=== PATIENT | male | born 1940 | race Caucasian/White ===

== ENCOUNTER → 2020-07-14 | Outpatient (CLI) | payer MEDICARE ==
[~2020-07-14] MED LIST: ACYCLOVIR400 MG PO; ALBUTEROL2.5 MG/3 M INH; ALDACTONE25 MG PO; ASPIRIN EC81 MG PO; ATIVAN1 MG PO; AUGMENTIN 875-1 EACH PO; AVODART0.5 MG PO; CEFUROXIME500 MG PO; CHEST CONGESTI400 MG PO; CLARITIN10 MG PO; CLEOCIN HCL300 MG PO; CO Q-10100 MG PO; COENZYME Q10100 M1 PO; DARZALEX FASPRO15 ML SC; DEPAKOTE125 MG PO; DEXAMETHASONE 44 MG PO; DULERA 200 MCG8.8 GM INH; ELIQUIS 2.5 MG2.5 MG PO; ELIQUIS5 MG PO; FERROUS SULFAT325 MG PO; FLOMAX0.4 MG PO; FLONASE 0.05% N16 GM; GAS-X125 MG PO; GLIMEPIRIDE4 MG PO; HYDROCODON-ACE1 EAC4 PO; ISOSORBIDE MONO30 MG PO; KEFLEX500 MG PO; KENALOG 0.5% CR15 GM TOP; LANTUS SOL100 UNIT/1 SQ; LANTUS100 UNIT/1 SQ; LASIX TAB 20 MG20 MG PO; LUMIFY2.5 ML OP; MEGACE TAB 40 M40 MG PO; METOPROLOL SUCC25 MG PO; MILK OF MAGNESI30 ML PO; MIRALAX17 GM PO; MYLANTA MAXIMU355 ML PO; NITROSTAT0.4 MG SL; NOVOLOG FL100 UNIT/1 INJ; OMEPRAZOLE20 M2 PO; OMNICEF 300 MG300 MG PO; POMALYST2 MG PO; PROAIR HFA8.5 GM INH; PROBIOTIC1 EAC1 PO; RANEXA500 MG PO; REMERON15 MG PO; RESTORIL30 MG PO; ROCALTROL CA0.25 MCG PO; SINGULAIR10 MG PO; TESSALON PERLE100 MG PO; TOPROL XL 50 MG50 MG PO; TYLENOL 500 MG500 MG PO; TYLENOL WITH C1 EACH PO; VEGETABLE LAXA8.6 MG PO; VITAMIN B-121000 MCG PO; VITAMIN B-6100 MG PO; VITAMIN D31000 UNI1 PO; VITAMIN D3250 MC2 PO; ZOCOR20 MG PO; ZOFRAN 8 MG TAB8 MG PO; [UNRECOGNIZED DRUG - OTHER] IV
[2020-07-15 09:13] LABS: HBSAG SCREEN Negative (Negative); HEP A AB, IGM Negative (Negative); HEP B CORE AB, IGM Negative (Negative); HEP C VIRUS AB <0.1 (0.0-0.9)
== END ==
LOC: LAB 11:22
PROVIDERS: Internal Medicine Hematology & Oncology
DX: Z01.89 Encounter for other specified special examinations (principal); C90.02 Multiple myeloma in relapse; G47.00 Insomnia, unspecified; Z79.01 Long term (current) use of anticoagulants
CPT/HCPCS: 36415; 80074; 86850; 86900; 86901

== ENCOUNTER 2020-08-08 12:11 | Observation (INO) | payer MEDICARE ==
[~2020-08-08] VITALS: Ht 175.3 cm; Wt 90.3 kg
[~2020-08-08 12:11] MED LIST changes: -ACYCLOVIR400 MG PO; -CEFUROXIME500 MG PO; -DEPAKOTE125 MG PO; -DEXAMETHASONE 44 MG PO; -HYDROCODON-ACE1 EAC4 PO; -ISOSORBIDE MONO30 MG PO; -LANTUS100 UNIT/1 SQ; -MEGACE TAB 40 M40 MG PO; -POMALYST2 MG PO; -REMERON15 MG PO
[2020-08-08 13:10] LABS: HEMOGLOBIN 11.7 gm/dl (14.0-17.5); RED BLOOD COUNT 4.15 M/UL (4.20-5.50); WHITE BLOOD COUNT 2.9 K/UL (4.5-11.0)
[2020-08-08] MEDS ORDERED: POMALYST2 MG PO (18:47)
[2020-08-08] MEDS ORDERED: ACYCLOVIR400 MG PO (19:15)
[2020-08-08] MEDS ORDERED: DEXAMETHASONE 44 MG PO (19:16)
[2020-08-09 03:11] LABS: HEMOGLOBIN 11.5 gm/dl (14.0-17.5); RED BLOOD COUNT 4.1 M/UL (4.20-5.50)
== END 2020-08-09 19:16 | disposition home or self-care (01) ==
LOC: ER1 12:11 → CDU 16:55 → MED SURG 4 19:25
PROVIDERS: Physician Assistant; ADMIT Family Medicine
DX: R55 Syncope and collapse (principal); I25.10 Atherosclerotic heart disease of native coronary artery without angina pectoris; I12.9 Hypertensive chronic kidney disease with stage 1 through stage 4 chronic kidney disease, or unspecified chronic kidney disease; N18.30 Chronic kidney disease, stage 3 unspecified; E78.5 Hyperlipidemia, unspecified; M19.90 Unspecified osteoarthritis, unspecified site; N40.0 Benign prostatic hyperplasia without lower urinary tract symptoms; E11.9 Type 2 diabetes mellitus without complications; Z87.891 Personal history of nicotine dependence; Z20.822 Contact with and (suspected) exposure to COVID-19; Z79.899 Other long term (current) drug therapy
CPT/HCPCS: ECHO; 36415; 70450; 71260; 72125; 73060; 80048; 80053; 82550; 82553; 82962; 83874; 84484; 85025; 85027; 93005; 93306; 94664; 94760; 96372; 96374; 97116; 97161; 99285; G0378; Q9965; U0002

== ENCOUNTER → 2020-08-14 | Outpatient (CLI) | payer MEDICARE ==
[~2020-08-14] MED LIST changes: +ACYCLOVIR400 MG PO; +CEFUROXIME500 MG PO; +DEPAKOTE125 MG PO; +DEXAMETHASONE 44 MG PO; +HYDROCODON-ACE1 EAC4 PO; +ISOSORBIDE MONO30 MG PO; +LANTUS100 UNIT/1 SQ; +MEGACE TAB 40 M40 MG PO; +POMALYST2 MG PO; +REMERON15 MG PO
== END ==
LOC: KOH-I 09:59
DX: R07.81 Pleurodynia (principal); M79.632 Pain in left forearm; C90.02 Multiple myeloma in relapse; Z79.01 Long term (current) use of anticoagulants; G47.00 Insomnia, unspecified
CPT/HCPCS: 71111; 73090

== ENCOUNTER 2020-08-24 13:19 | Emergency (ER) | payer MEDICARE ==
[~2020-08-24] VITALS: Ht 188 cm; Wt 82.1 kg
[~2020-08-24 13:19] MED LIST changes: -CEFUROXIME500 MG PO; -DEPAKOTE125 MG PO; -HYDROCODON-ACE1 EAC4 PO; -ISOSORBIDE MONO30 MG PO; -LANTUS100 UNIT/1 SQ; -MEGACE TAB 40 M40 MG PO; -REMERON15 MG PO
[2020-08-24 14:09] LABS: HEMOGLOBIN 10.3 gm/dl (14.0-17.5); RED BLOOD COUNT 3.64 M/UL (4.20-5.50); WHITE BLOOD COUNT 7.3 K/UL (4.5-11.0)
[2020-08-24 14:32] LABS: BUN/CREATININE RATIO 21 (0-10)
[2020-08-24] MEDS ORDERED: ISOSORBIDE MONO30 MG PO (17:29)
== END 2020-08-24 18:45 | disposition home or self-care (01) ==
LOC: ER1 13:19 → CDU 15:41 → ER1 18:45
PROVIDERS: Emergency Medicine
DX: R07.9 Chest pain, unspecified (principal); I12.9 Hypertensive chronic kidney disease with stage 1 through stage 4 chronic kidney disease, or unspecified chronic kidney disease; E11.22 Type 2 diabetes mellitus with diabetic chronic kidney disease; N18.9 Chronic kidney disease, unspecified
CPT/HCPCS: 71045; 80053; 82550; 82553; 83874; 84484; 85025; 93005; 99285

== ENCOUNTER → 2020-09-12 | Outpatient (CLI) | payer MEDICARE ==
[~2020-09-12] MED LIST changes: +CEFUROXIME500 MG PO; +DEPAKOTE125 MG PO; +HYDROCODON-ACE1 EAC4 PO; +ISOSORBIDE MONO30 MG PO; +LANTUS100 UNIT/1 SQ; +MEGACE TAB 40 M40 MG PO; +REMERON15 MG PO
== END ==
LOC: CT 10:30
DX: C90.02 Multiple myeloma in relapse (principal); G47.00 Insomnia, unspecified; Z79.01 Long term (current) use of anticoagulants; G31.9 Degenerative disease of nervous system, unspecified
CPT/HCPCS: 70470; Q9966

== ENCOUNTER 2020-10-04 21:05 | Emergency (ER) | payer MEDICARE ==
[~2020-10-04 21:05] MED LIST changes: -CEFUROXIME500 MG PO; -DEPAKOTE125 MG PO; -HYDROCODON-ACE1 EAC4 PO; -LANTUS100 UNIT/1 SQ; -MEGACE TAB 40 M40 MG PO; -REMERON15 MG PO
[2020-10-05 01:58] LABS: HEMOGLOBIN 11.2 gm/dl (14.0-17.5); RED BLOOD COUNT 4.25 M/UL (4.20-5.50); WHITE BLOOD COUNT 9.7 K/UL (4.5-11.0)
[2020-10-05] MEDS ORDERED: OMNICEF 300 MG300 MG PO (04:55)
== END 2020-10-05 06:15 | disposition home or self-care (01) ==
LOC: ER1 21:05
PROVIDERS: Family Medicine
DX: N39.0 Urinary tract infection, site not specified (principal); R31.9 Hematuria, unspecified; N18.9 Chronic kidney disease, unspecified; Z95.0 Presence of cardiac pacemaker
CPT/HCPCS: 80053; 81001; 83690; 85025; 96374; 99284; J0696

== ENCOUNTER 2020-10-20 14:46 | Emergency (ER) | payer MEDICARE ==
[2020-10-20 16:27] LABS: HEMOGLOBIN 12.3 gm/dl (14.0-17.5); RED BLOOD COUNT 4.56 M/UL (4.20-5.50); WHITE BLOOD COUNT 12.4 K/UL (4.5-11.0)
[2020-10-20] MEDS ORDERED: CEFUROXIME500 MG PO (17:56)
== END 2020-10-20 19:00 | disposition home or self-care (01) ==
LOC: ER1 14:46
PROVIDERS: Physician Assistant
DX: R41.82 Altered mental status, unspecified (principal); R53.81 Other malaise; E11.9 Type 2 diabetes mellitus without complications; Z90.49 Acquired absence of other specified parts of digestive tract; Z87.891 Personal history of nicotine dependence
CPT/HCPCS: 51701; 70450; 80053; 81001; 85025; 87077; 87086; 87186; 93005; 99285

== ENCOUNTER 2020-10-23 17:10 | Inpatient (IN) | payer MEDICARE ==
[~2020-10-23] VITALS: Ht 175.3 cm; Wt 69.9 kg
[~2020-10-23 17:10] MED LIST changes: +CEFUROXIME500 MG PO
[2020-10-23 18:45] LABS: HEMOGLOBIN 11.4 gm/dl (14.0-17.5); RED BLOOD COUNT 4.24 M/UL (4.20-5.50); WHITE BLOOD COUNT 10.1 K/UL (4.5-11.0)
[2020-10-23] MEDS ORDERED: MEGACE TAB 40 M40 MG PO (21:05)
[2020-10-24 04:21] LABS: RED BLOOD COUNT 4.51 M/UL (4.20-5.50); WHITE BLOOD COUNT 9.1 K/UL (4.5-11.0)
[2020-10-25 06:34] LABS: RED BLOOD COUNT 4.82 M/UL (4.20-5.50); WHITE BLOOD COUNT 7.7 K/UL (4.5-11.0)
[2020-10-26 03:54] LABS: HEMOGLOBIN 12.3 gm/dl (14.0-17.5); RED BLOOD COUNT 4.55 M/UL (4.20-5.50); WHITE BLOOD COUNT 9.2 K/UL (4.5-11.0)
== END 2020-10-26 16:35 | DRG 689 ==
LOC: ER1 17:10 → M/S 20:14 → CDU 20:14 → M/S 21:41
PROVIDERS: Emergency Medicine; ADMIT Family Medicine
DX: N39.0 Urinary tract infection, site not specified (principal); G93.41 Metabolic encephalopathy; C90.00 Multiple myeloma not having achieved remission; Z16.29 Resistance to other single specified antibiotic; I50.22 Chronic systolic (congestive) heart failure; I13.0 Hypertensive heart and chronic kidney disease with heart failure and stage 1 through stage 4 chronic kidney disease, or unspecified chronic kidney disease; I25.10 Atherosclerotic heart disease of native coronary artery without angina pectoris; E11.22 Type 2 diabetes mellitus with diabetic chronic kidney disease; N18.30 Chronic kidney disease, stage 3 unspecified; M19.90 Unspecified osteoarthritis, unspecified site; F03.90 Unspecified dementia, unspecified severity, without behavioral disturbance, psychotic disturbance, mood disturbance, and anxiety; Z20.822 Contact with and (suspected) exposure to COVID-19; B96.20 Unspecified Escherichia coli [E. coli] as the cause of diseases classified elsewhere; K21.9 Gastro-esophageal reflux disease without esophagitis; J45.909 Unspecified asthma, uncomplicated; F41.9 Anxiety disorder, unspecified; I25.5 Ischemic cardiomyopathy; Z95.0 Presence of cardiac pacemaker; Z92.21 Personal history of antineoplastic chemotherapy; Z87.891 Personal history of nicotine dependence
CPT/HCPCS: 36415; 51701; 51702; 70450; 71045; 80048; 80053; 81001; 82550; 82553; 82962; 83605; 83735; 83874; 83880; 84100; 84439; 84443; 84484; 85025; 85027; 85610; 85730; 87040; 87077; 87086; 87186; 93005; 94640; 94664; 94760; 97110-GP-CQ; 97162; 97166; 97530; 97530-GP-CQ; 99285; J0696; U0002

== ENCOUNTER 2020-11-22 14:05 | Inpatient (IN) | payer MEDICARE ==
[~2020-11-22] VITALS: Ht 182.9 cm; Wt 66.7 kg
[~2020-11-22 14:05] MED LIST changes: +MEGACE TAB 40 M40 MG PO
[2020-11-22 15:14] LABS: HEMOGLOBIN 12.4 gm/dl (14.0-17.5); RED BLOOD COUNT 4.54 M/UL (4.20-5.50)
[2020-11-22 15:30] LABS: WHITE BLOOD COUNT 11.8 K/UL (4.5-11.0)
[2020-11-22] MEDS ORDERED: HYDROCODON-ACE1 EAC4 PO (21:31)
[2020-11-22] MEDS ORDERED: DEPAKOTE125 MG PO (21:32)
[2020-11-22] MEDS ORDERED: LANTUS100 UNIT/1 SQ (21:34)
[2020-11-22] MEDS ORDERED: REMERON15 MG PO ×3 (21:40→21:44)
[2020-11-23 05:24] LABS: HEMOGLOBIN 11.1 gm/dl (14.0-17.5); RED BLOOD COUNT 4.17 M/UL (4.20-5.50)
[2020-11-23 08:57] LABS: ACINETOBACTER BAUMANNII Not Detected (Negative); CANDIDA ALBICANS Not Detected (Negative); CANDIDA KRUSEI Not Detected (Negative); CANDIDA TROPICALIS Not Detected (Negative); ENTEROCOCCUS Not Detected (Negative); ESCHERICHIA COLI Not Detected (Negative); HAEMOPHILUS INFLUENZAE Not Detected (Negative); KLEBSIELLA OXYTOCA Not Detected (Negative); KLEBSIELLA PNEUMONIAE Not Detected (Negative); KPC-CARBAPENEM-RESISTANCE GENE Not Detected (Negative); PROTEUS Not Detected (Negative); PSEUDOMONAS AERUGINOSA Not Detected (Negative); SERRATIA MARCESANS Not Detected (Negative); STREP AGALACTIAE (GROUP B) Not Detected (Negative); STREP PYOGENES (GROUP A) Not Detected (Negative); STREPTOCOCCUS Not Detected (Negative); mecA (METHICILLIN RESIST GENE Not Detected (Negative); vanA/B (VANCOMYCIN RESIST GENE Not Detected (Negative)
[2020-11-23 10:14] LABS: STAPHYLOCOCCUS DETECTED (Negative); STAPHYLOCOCCUS AUREUS DETECTED (Negative)
== END 2020-11-23 10:17 | disposition expired | DRG 871 ==
LOC: ER1 14:05 → CCU 18:58 → CDU 18:58 → CCU 20:56
PROVIDERS: Emergency Medicine; ADMIT Family Medicine
PROC: 5A1935Z Respiratory Ventilation, Less than 24 Consecutive Hours (ICD-10-PCS; principal; 2020-11-22)
PROC: 0BH17EZ Insertion of Endotracheal Airway into Trachea, Via Natural or Artificial Opening (ICD-10-PCS; 2020-11-22)
DX: A41.9 Sepsis, unspecified organism (principal); R65.21 Severe sepsis with septic shock; J96.01 Acute respiratory failure with hypoxia; J69.0 Pneumonitis due to inhalation of food and vomit; I13.0 Hypertensive heart and chronic kidney disease with heart failure and stage 1 through stage 4 chronic kidney disease, or unspecified chronic kidney disease; E87.2 Acidosis; N17.9 Acute kidney failure, unspecified; N18.30 Chronic kidney disease, stage 3 unspecified; E11.22 Type 2 diabetes mellitus with diabetic chronic kidney disease; I25.10 Atherosclerotic heart disease of native coronary artery without angina pectoris; I48.91 Unspecified atrial fibrillation; I50.9 Heart failure, unspecified; I27.20 Pulmonary hypertension, unspecified; J44.9 Chronic obstructive pulmonary disease, unspecified; F41.9 Anxiety disorder, unspecified; K21.9 Gastro-esophageal reflux disease without esophagitis; D64.89 Other specified anemias; J45.909 Unspecified asthma, uncomplicated; M19.90 Unspecified osteoarthritis, unspecified site; F03.90 Unspecified dementia, unspecified severity, without behavioral disturbance, psychotic disturbance, mood disturbance, and anxiety; Z20.822 Contact with and (suspected) exposure to COVID-19; E78.5 Hyperlipidemia, unspecified; R41.82 Altered mental status, unspecified; E86.0 Dehydration; Z66 Do not resuscitate; Z90.89 Acquired absence of other organs; Z79.4 Long term (current) use of insulin; Z90.49 Acquired absence of other specified parts of digestive tract; Z98.42 Cataract extraction status, left eye; Z98.41 Cataract extraction status, right eye; Z95.0 Presence of cardiac pacemaker; Z83.3 Family history of diabetes mellitus; Z82.49 Family history of ischemic heart disease and other diseases of the circulatory system; Z80.9 Family history of malignant neoplasm, unspecified; Z87.891 Personal history of nicotine dependence
CPT/HCPCS: 31500; 36415; 36600; 70450; 71045; 71250; 80053; 80202; 81001; 82009; 82550; 82553; 82803; 82962; 83605; 83735; 83880; 84100; 84484; 85025; 85027; 85610; 85730; 87040; 87077; 87086; 87150; 87186; 93005; 94002; 94003; 94760; 96365; 96366; 96375; 99285; J0171; J0330; J2060; J2185; J2250; J2270; J2370; J2704; J3370; J7030; J7070; U0002